=== PATIENT | male | born 1980 | race Caucasian/White ===

== ENCOUNTER 2018-01-30 05:34 | Emergency (ER) | payer SELFPAY ==
[~2018-01-30] VITALS: Ht 182.9 cm; Wt 82.6 kg
--- OUTSIDE RECORDS SUMMARY | 2018-01-30 05:40 | XMS REPORT | Continuity of Care Document ---
Author Author [facility] Address Unknown Phone Unavailable Allergies There is no data. Medications There is no data. Problems Date Dx Coded Attending Type Code Diagnosis Diagnosed By 08/04/2012 ALEX VALDEZ DO 729.5 ARM PAIN 08/04/2012 ALEX VALDEZ DO 813.20 FRACTURE OF SHAFT OF RADIUS OR ULNA UNSPECIFIED CLOSED 08/04/2012 ALEX VALDEZ DO V58.31 WOUND DRESSING Procedures Code Description Performed By Performed On A6449 LT GEORGE BAND >=3" <5"/YD 08/04/2012 S0630 SUTURE REMOVAL 08/04/2012 Results There is no data. Encounters ACCT No. Visit Date/Time Discharge Status Pt. Type Provider Facility Loc./Unit Complaint [id number] 08/04/2012 10:13:00 08/04/2012 23:59:59 CLS Outpatient ALEX VALDEZ DO
--- OUTSIDE RECORDS SUMMARY | 2018-01-30 05:40 | XMS REPORT ---
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 Unknown Non Drug Allergy Sep, Unknown SOCIAL HISTORY No smoking Hx information available PLAN OF CARE Activity Details Follow Up 4 Weeks Reason: VITAL SIGNS Height 72.1 in 2016-10-12 Weight 162.5 lbs 2016-10-12 Heart Rate 118 bpm 2016-10-12 Respiratory Rate 20 2016-10-12 BMI 21.98 kg/m2 2016-10-12 Blood pressure systolic 132 mmHg 2016-10-12 Blood pressure diastolic 76 mmHg 2016-10-12 MEDICATIONS Medication Instructions Dosage Frequency Start Date End Date Duration Status Invega 6 MG Orally Once a day 1 tablet in the morning 24h Sep, 30 day(s) Active RESULTS No Results PROCEDURES Procedure Date Ordered Related Diagnosis Body Site MH Office Visit, Est Pt., Level 5 Oct 12, 2016 IMMUNIZATIONS No Known Immunizations
--- OUTSIDE RECORDS SUMMARY | 2018-01-30 05:40 | XMS REPORT ---
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 Unknown Non Drug Allergy Sep, Unknown SOCIAL HISTORY No smoking Hx information available PLAN OF CARE Activity Details Follow Up 1 Week Reason:te VITAL SIGNS Blood pressure systolic 125 mmHg 2016-10-13 Blood pressure diastolic 90 mmHg 2016-10-13 MEDICATIONS Medication Instructions Dosage Frequency Start Date End Date Duration Status Invega 6 MG Orally Once a day 1 tablet in the morning 24h Sep, 30 day(s) Active Amoxicillin 500 MG Orally every 6 hrs 1 capsule 6h Sep, 7 days Active RESULTS No Results PROCEDURES Procedure Date Ordered Related Diagnosis Body Site LTD ORAL EVALUATION - PROBLEM FOCUS Oct 13, 2016 INTRAORL-PERIAPICAL 1 FILM [id number] Oct 13, 2016 IMMUNIZATIONS No Known Immunizations
--- OUTSIDE RECORDS SUMMARY | 2018-01-30 05:40 | XMS REPORT ---
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
--- OUTSIDE RECORDS SUMMARY | 2018-01-30 05:40 | XMS REPORT ---
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
[2018-01-30 07:25] VITALS: BP 134/80
== END 2018-01-30 07:30 | disposition home or self-care (01) ==
LOC: EDUNIT# 05:34 → ER 05:36
DX: S06.0X0A Concussion without loss of consciousness, initial encounter (principal); F17.210 Nicotine dependence, cigarettes, uncomplicated; Z88.5 Allergy status to narcotic agent; V18.4XXA Pedal cycle driver injured in noncollision transport accident in traffic accident, initial encounter
CPT/HCPCS: 70450; 71045; 72125; 73000

== ENCOUNTER 2022-10-07 21:52 | Emergency (ER) | payer SELFPAY ==
[~2022-10-07] VITALS: Ht 182.9 cm; Wt 63.5 kg
--- NOTE | 2022-10-07 22:26 | ED Abdominal Pain ---
General Stated Complaint: SEVERE ABDOMINAL PAIN Source of Information: Patient (VERY DIFFICULT HISTORIAN) History of Present Illness Date Seen by Provider: Oct 07, 2022 Time Seen by Provider: 22:15 Initial Comments PT ARRIVES VIA POV FROM HOME C/O LLQ PAIN X 2 HOURS NO HISTORY OF SAME AND NO PRIOR ABDOMINAL SURGERIES STATES HE AT 3 HOURS AGO, WILL NOT STATE WHAT HE ATE. UNABLE/UNWILLING TO GIVE ANY MORE INFORMATION THAN THAT ON REVIEWED OF PRIOR RECORDS, PT HAS HISTORY OF KIDNEY STONES. PT DOES NOT GIVE THIS INFORMATION PCP: NONE--JUST GOT OUT OF CORRECTION IN JUNE 2022. PT IS ORIGINALLY FROM [facility]. HE STATES HE IS NOT CURRENTLY HOMELESS Allergies and Home Medications Allergies Coded Allergies: tramadol (Verified Allergy, Unknown, 01/30/18) Patient Home Medication List Home Medication List Reviewed: Yes Ciprofloxacin HCl (Ciprofloxacin HCl) 500 Mg Tablet, 500 MG PO BID Prescribed by: SAMIR XIE on 10/08/2248 Ketorolac Tromethamine (Ketorolac Tromethamine) 10 Mg Tablet, 10 MG PO Q6H Prescribed by: SAMIR XIE on 10/08/2248 Polyethylene Glycol 3350 (Miralax) 17 Gram Powd.pack, 17 GM PO UD Prescribed by: SAMIR XIE on 10/08/2248 Review of Systems Review of Systems Constitutional: no symptoms reported Gastrointestinal: See HPI, Abdominal Pain Past Djrpgdf-Lqagrx-Tcphht Hx Patient Social History Tobacco Use?: Yes Tobacco type used: Cigarettes Smoking Status: Current Everyday Smoker Substance use?: Yes Substance type: Methamphetamine, Marijuana Additional substance use comme: +IV METH USE; THC USE Alcohol Use?: No (DENIES USE) Past Medical History Surgeries: Yes (TESTICLE,SKIN GRAFTS) Respiratory: No Cardiac: No Neurological: No Reproductive Disorders: No Genitourinary: Yes Kidney Stones Gastrointestinal: No Musculoskeletal: No Endocrine: No HEENT: No Cancer: No Psychosocial: Yes (POLYSUBSTANCE USE; INCARCERATED UNTIL 06/2022) Integumentary: No Blood Disorders: No Family Medical History No Pertinent Family Hx Physical Exam Vital Signs Vital Signs - First Documented 10/07/22 22:05 Temp 36.4 Pulse 95 Resp 20 B/P (MAP) 131/79 (96) Pulse Ox 100 O2 Delivery Room Air Capillary Refill : Height/Weight/BMI Height: 6'0" Weight: 182lbs. oz. 82.518140xc; BMI Method:Stated General Appearance: other (FILTHY, VERY UNKEMPT, EXTREMELY DRAMATIC, WAILING WITH IV STICK, DOES NOT WANT TO TALK OR ANSWER QUESTIONS, GIVES VERY MINIMAL ANSWERS) Respiratory: normal breath sounds Cardiovascular: regular rate, rhythm Gastrointestinal: soft, guarding, tenderness (LLQ) Extremities: normal inspection Back: no CVA tenderness Neurologic/Psychiatric: no motor/sensory deficits, alert, oriented x 3 Skin: normal color, warm/dry, tattoos/piercings (EXTENSIVE TATTOOS; NO OBVIOUS RECENT IV TRACK CHAO TO ARMS. ) Progress/Results/Core Measures Results/Orders Lab Results Laboratory Tests Test 10/07/22 22:20 10/08/22 00:10 Range/Units White Blood Count 7.3 4.3-11.0 10^3/uL Red Blood Count 4.48 4.30-5.52 10^6/uL Hemoglobin 14.2 13.3-17.7 g/dL Hematocrit 42 40-54 % Mean Corpuscular Volume 93 80-99 fL Mean Corpuscular Hemoglobin 32 25-34 pg Mean Corpuscular Hemoglobin Concent 34 32-36 g/dL Red Cell Distribution Width 12.3 10.0-14.5 % Platelet Count 296 130-400 10^3/uL Mean Platelet Volume 10.2 9.0-12.2 fL Immature Granulocyte % (Auto) 0 % Neutrophils (%) (Auto) 64 42-75 % Lymphocytes (%) (Auto) 25 12-44 % Monocytes (%) (Auto) 8 0-12 % Eosinophils (%) (Auto) 2 0-10 % Basophils (%) (Auto) 1 0-10 % Neutrophils # (Auto) 4.7 1.8-7.8 10^3/uL Lymphocytes # (Auto) 1.8 1.0-4.0 10^3/uL Monocytes # (Auto) 0.6 0.0-1.0 10^3/uL Eosinophils # (Auto) 0.1 0.0-0.3 10^3/uL Basophils # (Auto) 0.1 0.0-0.1 10^3/uL Immature Granulocyte # (Auto) 0.0 0.0-0.1 10^3/uL Erythrocyte Sedimentation Rate 5 0-15 MM/HR Sodium Level 140 135-145 MMOL/L Potassium Level 4.0 3.6-5.0 MMOL/L Chloride Level 105 98-107 MMOL/L Carbon Dioxide Level 24 21-32 MMOL/L Anion Gap 11 5-14 MMOL/L Blood Urea Nitrogen 23 H 7-18 MG/DL Creatinine 0.98 0.60-1.30 MG/DL Estimat Glomerular Filtration Rate 98 BUN/Creatinine Ratio 23 Glucose Level 100 70-105 MG/DL Calcium Level 9.4 8.5-10.1 MG/DL Corrected Calcium 9.1 8.5-10.1 MG/DL Total Bilirubin 0.5 0.1-1.0 MG/DL Aspartate Amino Transf (AST/SGOT) 17 5-34 U/L Alanine Aminotransferase (ALT/SGPT) 25 0-55 U/L Alkaline Phosphatase 63 40-136 U/L C-Reactive Protein High Sensitivity 0.26 0.00-0.50 MG/DL Total Protein 7.2 6.4-8.2 GM/DL Albumin 4.4 3.2-4.5 GM/DL Amylase Level 31 25-125 U/L Lipase 25 8-78 U/L Serum Alcohol < 10 <10 MG/DL Urine Color DARK YELLOW Urine Clarity CLOUDY Urine pH 6.0 5-9 Urine Specific [place] 1.025 H 1.016-1.022 Urine Protein 1+ H NEGATIVE Urine Glucose (UA) NEGATIVE NEGATIVE Urine Ketones 1+ H NEGATIVE Urine Nitrite NEGATIVE NEGATIVE Urine Bilirubin NEGATIVE NEGATIVE Urine Urobilinogen 1.0 < = 1.0 MG/DL Urine Leukocyte Esterase 1+ H NEGATIVE Urine RBC (Auto) 3+ H NEGATIVE Urine RBC 25-50 H /HPF Urine WBC 5-10 H /HPF Urine Squamous Epithelial Cells 0-2 /HPF Urine Crystals NONE /LPF Urine Bacteria TRACE /HPF Urine Casts NONE /LPF Urine Mucus SMALL H /LPF Urine Culture Indicated YES Urine Opiates Screen NEGATIVE NEGATIVE Urine Oxycodone Screen NEGATIVE NEGATIVE Urine Methadone Screen NEGATIVE NEGATIVE Urine Propoxyphene Screen NEGATIVE NEGATIVE Urine Barbiturates Screen NEGATIVE NEGATIVE Ur Tricyclic Antidepressants Screen NEGATIVE NEGATIVE Urine Phencyclidine Screen NEGATIVE NEGATIVE Urine Amphetamines Screen POSITIVE H NEGATIVE Urine Methamphetamines Screen POSITIVE H NEGATIVE Urine Benzodiazepines Screen NEGATIVE NEGATIVE Urine Cocaine Screen NEGATIVE NEGATIVE Urine Cannabinoids Screen NEGATIVE NEGATIVE My Orders Orders - SAMIR XIE DO Ed Iv/Invasive Line Start (10/07/22 22:14) Amylase (10/07/22 22:14) Cbc With Automated Diff (10/07/22 22:14) Comprehensive Metabolic Panel (10/07/22 22:14) Hs C Reactive Protein (10/07/22 22:14) Lipase (10/07/22 22:14) Ua Culture If Indicated (10/07/22 22:14) Erythrocyte Sedimentation Rate (10/07/22 22:14) Ct Abd/Pelvis Wo(Kidney Stone) (10/07/22 22:19) Alcohol (10/07/22 22:19) Drug Screen Stat (Urine) (10/07/22 22:19) Abdomen/Kub 1view (10/07/22 22:21) Ed Iv/Invasive Line Start (10/07/22 22:30) Lactated Ringers (Lr 1000 Ml Iv Solution (10/07/22 22:30) Ondansetron Injection (Zofran Injectio (10/07/22 22:30) Ketorolac Injection (Toradol Injection) (10/07/22 22:30) Urine Culture (10/08/22 00:10) Ceftriaxone 1 Gm Pre-Mix (Rocephin 1 Gm (10/08/22 00:40) Medications Given in ED Current Medications Medications Dose Ordered Sig/Bharati Route Start Time Stop Time Status Last Admin Dose Admin Lactated Ringer's 1,000 ml @ 0 mls/hr Q0M ONCE IV 10/07/22 22:30 10/07/22 22:31 DC 10/07/22 22:38 0 MLS/HR Ondansetron HCl 4 mg ONCE ONCE IVP 10/07/22 22:30 10/07/22 22:31 DC 10/07/22 22:38 4 MG Vital Signs/I&O 10/07/22 22:05 Temp 36.4 Pulse 95 Resp 20 B/P (MAP) 131/79 (96) Pulse Ox 100 O2 Delivery Room Air Progress Progress Note : Progress Note PT IS VERY BELLIGERENT, CURSING AND VERBALLY ABUSIVE TO STAFF, FROM TIME OF ARRIVAL GIVEN: -IV FLUIDS -ZOFRAN -TORADOL PT SLEPT FOR REMAINDER OF ER STAY REVIEWED OLD RECORDS, INCLUDING ER VISITS, ADMITS, TESTS/PROCEDURES, CONSULTS AND DISCHARGE SUMMARIES REVIEWED TEST RESULTS, ANTICIPATED COURSE, MEDICATIONS, DIET, NEED FOR FOLLOW UP / ESTABLISH WITH LOCAL DR, AND RETURN PRECAUTIONS DISCUSSED WITH PT. Departure Impression Primary Impression: Constipation Additional Impressions: Urinary tract infection Methamphetamine addiction Disposition: 01 HOME, SELF-CARE Condition: Improved Departure-Patient Inst. Decision time for Depature: 00:42 Referrals: NO,LOCAL PHYSICIAN (PCP/Family) Primary Care Physician Patient Instructions: Constipation, Adult (DC), Drug Abuse and Drug Addiction (DC), Urinary Tract Infection, Adult (DC) Add. Discharge Instructions: HOME, REST NO DRUGS! LOTS OF CLEAR LIQUIDS--WATER, BROTH, JELLO, GATORADE NO FOOD UNTIL YOU HAVE HAD A BOWEL MOVEMENT, THEN START A HIGH FIBER DIET TAKE MIRALAX 1 CAP IN 8 OZ OF WATER--EVERY HOUR UNTIL YOU HAVE A BOWEL MOVEMENT, THEN START USING MIRALAX ONCE A DAY FOLLOW UP WITH DR OF CHOICE IN 2-3 DAYS IF NO BETTER, RETURN TO ER IF WORSE Scripts Ketorolac Tromethamine (Ketorolac Tromethamine) 10 Mg Tablet 10 MG PO Q6H for Pain, #15 TAB Prov: SAMIR XIE DO 10/08/22 Polyethylene Glycol 3350 (Miralax) 17 Gram Powd.pack 17 GM PO UD, #1 EACH MIX DIRECTED, THEN TAKE 1 DOSE EVERY 1-2 HOURS UNTIL YOU HAVE A BM, THEN USE ONCE A DAY EVERY DAY Prov: SAMIR XIE DO 10/08/22 Ciprofloxacin HCl (Ciprofloxacin HCl) 500 Mg Tablet 500 MG PO BID, #14 TAB Prov: SAMIR XIE DO 10/08/22 SAMIR XIE DO Oct 07, 2022 22:26
[2022-10-07 22:29] LABS: BASOPHILS # (AUTO) 0.1 10^3/uL (0.0-0.1); BASOPHILS % (AUTO) 1 % (0-10); EOSINOPHILS # (AUTO) 0.1 10^3/uL (0.0-0.3); EOSINOPHILS % (AUTO) 2 % (0-10); HEMATOCRIT 42 % (40-54); HEMOGLOBIN 14.2 g/dL (13.3-17.7); LYMPHOCYTES # (AUTO) 1.8 10^3/uL (1.0-4.0); LYMPHOCYTES % (AUTO) 25 % (12-44); MEAN CORPUSCULAR HEMOGLOBIN 32 pg (25-34); MEAN CORPUSCULAR HGB CONC 34 g/dL (32-36); MEAN CORPUSCULAR VOLUME 93 fL (80-99); MEAN PLATELET VOLUME 10.2 fL (9.0-12.2); MONOCYTES # (AUTO) 0.6 10^3/uL (0.0-1.0); MONOCYTES % (AUTO) 8 % (0-12); NEUTROPHILS # (AUTO) 4.7 10^3/uL (1.8-7.8); NEUTROPHILS % (AUTO) 64 % (42-75); PLATELET COUNT 296 10^3/uL (130-400); WHITE BLOOD COUNT 7.3 10^3/uL (4.3-11.0)
[2022-10-07] MEDS ORDERED: ONDANSETRON 4 MG/2 ML (SDV) Z0FRAN IVP ONE (22:30)
[2022-10-07] MEDS ORDERED: KETOROLAC 30 MG/ML VIAL IVP STA (22:30)
[2022-10-07] MEDS ORDERED: LACTATED RINGERS 1,000 ML IV ONE (22:30)
[2022-10-07 22:43] LABS: ALBUMIN 4.4 GM/DL (3.2-4.5); CHLORIDE 105 MMOL/L (98-107); SODIUM 140 MMOL/L (135-145)
[2022-10-07 22:44] LABS: AMYLASE 31 U/L (25-125); CALCIUM 9.4 MG/DL (8.5-10.1)
[2022-10-07 22:46] LABS: GLUCOSE 100 MG/DL (70-105); TOTAL PROTEIN 7.2 GM/DL (6.4-8.2)
[2022-10-07 22:47] LABS: BILIRUBIN,TOTAL 0.5 MG/DL (0.1-1.0); CARBON DIOXIDE 24 MMOL/L (21-32); ERYTHROCYTE SEDIMENTATION RATE 5 MM/HR (0-15)
[2022-10-07 22:49] LABS: ALKALINE PHOSPHATASE 63 U/L (40-136); CREATININE SERUM 0.98 MG/DL (0.60-1.30); GFR ESTIMATED 98
[2022-10-07 22:50] LABS: BUN/CREATININE RATIO 23
[2022-10-07 22:52] LABS: ALANINE AMINOTRANSFERASE 25 U/L (0-55)
[2022-10-07 22:53] LABS: LIPASE 25 U/L (8-78)
[2022-10-08 00:17] LABS: BILIRUBIN,URINE NEGATIVE (NEGATIVE); CLARITY,URINE CLOUDY; GLUCOSE, URINE (UA) NEGATIVE (NEGATIVE); KETONES,URINE 1+ (NEGATIVE); LEUKOCYTE ESTERASE ,URINE 1+ (NEGATIVE); NITRITE,URINE NEGATIVE (NEGATIVE); PROTEIN,URINE 1+ (NEGATIVE)
[2022-10-08 00:20] LABS: COLOR,URINE DARK YELLOW
[2022-10-08 00:33] LABS: BACTERIA,URINE TRACE /HPF; RBC,URINE 25-50 /HPF; SQUAMOUS EPITHELIAL CELL,UR 0-2 /HPF
[2022-10-08 00:34] LABS: AMPHETAMINE SCREEN, URINE POSITIVE (NEGATIVE); BARBITURATE SCREEN URINE NEGATIVE (NEGATIVE); BENZODIAZEPINES SCREEN URINE NEGATIVE (NEGATIVE); CANNABINOID SCREEN, URINE NEGATIVE (NEGATIVE); COCAINE SCREEN URINE NEGATIVE (NEGATIVE); METHADONE STAT NEGATIVE (NEGATIVE); OPIATE SCREEN URINE NEGATIVE (NEGATIVE); OXYCODONE STAT NEGATIVE (NEGATIVE); PROPOXYPHENE STAT NEGATIVE (NEGATIVE); TRICYCLIC ANTIDEPRESSANTS SCRE NEGATIVE (NEGATIVE)
[2022-10-08] MEDS ORDERED: cefTRIAXone 1 GM PRE-MIX 50 ML IV STA (00:40)
[2022-10-08] MEDS ORDERED: POLY17PO6 PO (00:49)
[2022-10-08] MEDS ORDERED: CIPR500T5 PO (00:49)
[2022-10-08] MEDS ORDERED: KETO10TA PO (00:49)
[2022-10-08 01:30] VITALS: BP 113/79
--- NOTE | 2022-10-08 05:32 | Diagnostic Imaging Report ---
INDICATION: Abdominal pain. FINDINGS: The bowel gas pattern is nonspecific. Lung bases are clear. There is no free air. There are no abnormal abdominal calcifications. IMPRESSION: Nonspecific bowel gas pattern. Dictated by: Dictated on workstation # [id number]
--- NOTE | 2022-10-08 05:37 | Diagnostic Imaging Report ---
PROCEDURE: CT urinary tract, rule out kidney stone. TECHNIQUE: Multiple contiguous axial images were obtained through the abdomen and pelvis without the use of intravenous contrast. Auto Exposure Controls were utilized during the CT exam to meet ALARA standards for radiation dose reduction. INDICATION: Flank pain. FINDINGS: The heart size is normal. The lung bases are clear. The liver is normal in size without focal lesions. Gallbladder is unremarkable. There is no biliary ductal dilatation. Spleen is normal. Pancreas and adrenal glands are unremarkable. There are nonobstructing stones in the right kidney. There is no evidence of obstructive uropathy. There is some atherosclerotic calcification of the aorta. There is a moderate amount of retained fecal material likely reflecting some degree of constipation. Bowel gas pattern is otherwise nonspecific. There is no free air. There is no ascites. There is no pelvic mass or adenopathy. There are degenerative changes in spine. IMPRESSION: Nonobstructing right renal calculi without evidence of obstructive uropathy. Moderate amount of retained fecal material likely reflecting some degree of constipation, otherwise nonspecific bowel gas pattern. Otherwise unremarkable noncontrast CT abdomen and pelvis. Dictated by: Dictated on workstation # [id number]
== END 2022-10-08 01:30 | disposition home or self-care (01) ==
LOC: EDUNIT# 21:52 → ER 21:54
DX: K59.00 Constipation, unspecified (principal); N39.0 Urinary tract infection, site not specified; F15.20 Other stimulant dependence, uncomplicated; F17.210 Nicotine dependence, cigarettes, uncomplicated; Z87.442 Personal history of urinary calculi; Z88.5 Allergy status to narcotic agent
CPT/HCPCS: 74018; 74176; 80053; 82150; 83690; 85025; 85652; 86141; G0480; 36415; 80306; 80320; 81000; 87088

== ENCOUNTER 2022-10-10 00:56 | Emergency (ER) | payer SELFPAY ==
[~2022-10-10] VITALS: Ht 182 cm; Wt 63.5 kg
[~2022-10-10 00:56] MED LIST: CIPR500T5 PO; KETO10TA PO; POLY17PO6 PO
[2022-10-10] MEDS ORDERED: diphenhydrAMINE 50 MG/ML INJ (BENADRYL) IV STA (01:49)
[2022-10-10] MEDS ORDERED: KETOROLAC 30 MG/ML VIAL IVP STA (01:49)
[2022-10-10] MEDS ORDERED: LACTATED RINGERS 1,000 ML IV ONE (02:00)
[2022-10-10 02:08] LABS: BASOPHILS % (AUTO) 1 % (0-10); EOSINOPHILS # (AUTO) 0.1 10^3/uL (0.0-0.3); EOSINOPHILS % (AUTO) 2 % (0-10); HEMATOCRIT 40 % (40-54); HEMOGLOBIN 13.6 g/dL (13.3-17.7); LYMPHOCYTES # (AUTO) 1.9 10^3/uL (1.0-4.0); LYMPHOCYTES % (AUTO) 25 % (12-44); MEAN CORPUSCULAR HEMOGLOBIN 32 pg (25-34); MEAN CORPUSCULAR HGB CONC 34 g/dL (32-36); MEAN CORPUSCULAR VOLUME 94 fL (80-99); MEAN PLATELET VOLUME 10.2 fL (9.0-12.2); MONOCYTES # (AUTO) 0.6 10^3/uL (0.0-1.0); MONOCYTES % (AUTO) 8 % (0-12); NEUTROPHILS # (AUTO) 4.8 10^3/uL (1.8-7.8); NEUTROPHILS % (AUTO) 65 % (42-75); PLATELET COUNT 292 10^3/uL (130-400); WHITE BLOOD COUNT 7.5 10^3/uL (4.3-11.0)
[2022-10-10 02:10] LABS: ALBUMIN 4.2 GM/DL (3.2-4.5); CHLORIDE 106 MMOL/L (98-107); SODIUM 139 MMOL/L (135-145)
[2022-10-10 02:11] LABS: AMYLASE 40 U/L (25-125); CALCIUM 9.2 MG/DL (8.5-10.1)
[2022-10-10 02:13] LABS: GLUCOSE 103 MG/DL (70-105)
[2022-10-10 02:14] LABS: CARBON DIOXIDE 22 MMOL/L (21-32)
[2022-10-10 02:15] LABS: BILIRUBIN,TOTAL 0.3 MG/DL (0.1-1.0)
[2022-10-10 02:16] LABS: ALKALINE PHOSPHATASE 56 U/L (40-136); CREATININE SERUM 1.14 MG/DL (0.60-1.30); GFR ESTIMATED 81
[2022-10-10 02:17] LABS: BUN/CREATININE RATIO 14
[2022-10-10 02:19] LABS: ALANINE AMINOTRANSFERASE 25 U/L (0-55)
[2022-10-10 02:20] LABS: LIPASE 35 U/L (8-78)
--- NOTE | 2022-10-10 02:57 | ED Abdominal Pain ---
General Chief Complaint: Back Problems Stated Complaint: SIDE PAIN Nursing Triage Note: c/o left flank pain radiating to testicles x2 hrs. Source of Information: Patient (DIFFICULT HISTORIAN), Old Records History of Present Illness Date Seen by Provider: Oct 10, 2022 Time Seen by Provider: 01:47 Initial Comments PT ARRIVES VIA POV--STATES "A PAULINA DROPPED ME OFF" C/O LLQ AND LEFT FLANK PAIN RADIATING TO TESTICLES --TELLS ME IT STARTED 30 MINUTES AGO, TOLD RN IT STARTED 2 HOURS AGO. NO NAUSEA/VOMITING NO URINARY SYMPTOMS HAS NOT TAKEN ANYTHING FOR PAIN UNABLE TO OBTAIN ANY OTHER INFORMATION FROM PT ABOUT CURRENT ISSUE WHEN PT ARRIVED IN WAITING ROOM HE WAS EXTREMELY BELLIGERENT, YELLING, HITTING THE ARCINIEGA AND THE WINDOWS, THEN LAID ON THE FLOOR AND REFUSED TO MOVE. [employer] ADMINISTRATOR AND [employer]ICE WERE CONTACTED AND PT EVENTUALLY CALMED, AND AGREED TO BE RESPECTFUL, PRIOR TO BEING BROUGHT BACK TO A ROOM. PT WAS HERE ON 10/07/22 FOR SAME COMPLAINT. FULL WORK UP, INCLUDING LAB, AND CT SCAN WERE DONE, AND ONLY SHOWED EVIDENCE OF CONSTIPATION AT THAT TIME. HE WAS PRESCRIBED ZOFRAN, TORADOL AND MIRALAX. HE STATES DID NOT SERVICE SUPPORT REPRESENTATIVE ANY OF THESE PRESCRIPTIONS. Allergies and Home Medications Allergies Coded Allergies: tramadol (Verified Allergy, Unknown, 01/30/18) Patient Home Medication List Home Medication List Reviewed: Yes Ciprofloxacin HCl (Ciprofloxacin HCl) 500 Mg Tablet, 500 MG PO BID Prescribed by: SAMIR XIE on 10/08/2248 Ciprofloxacin HCl (Ciprofloxacin HCl) 500 Mg Tablet, 500 MG PO BID Prescribed by: SAMIR XIE on 10/10/22342 Hydrocodone/Acetaminophen (Hydrocodone-Acetamin 5-325 mg) 5 Mg-325 Mg Tablet, 1 EACH PO Q4-6 HOURS PRN for PAIN Prescribed by: SAMIR XIE on 10/10/22342 Ketorolac Tromethamine (Ketorolac Tromethamine) 10 Mg Tablet, 10 MG PO Q6H Prescribed by: SAMIR XIE on 10/08/2248 Ketorolac Tromethamine (Ketorolac Tromethamine) 10 Mg Tablet, 10 MG PO Q6H Prescribed by: SAMIR XIE on 10/10/22342 Ondansetron (Ondansetron Odt) 8 Mg Tab.rapdis, 8 MG PO Q6H Prescribed by: SAMIR XIE on 10/10/22 0343 Polyethylene Glycol 3350 (Miralax) 17 Gram Powd.pack, 17 GM PO UD Prescribed by: SAMIR XIE on 10/08/22 0049 Tamsulosin HCl (Flomax) 0.4 Mg Cap, 0.4 MG PO DAILY Prescribed by: SAMIR XIE on 10/10/22 0343 Review of Systems Review of Systems Constitutional: see HPI Gastrointestinal: See HPI Genitourinary: See HPI Psychiatric/Neurological: See HPI Past Suiflhx-Umqkni-Ntfuqr Hx Patient Social History Tobacco Use?: Yes Tobacco type used: Cigarettes Smoking Status: Current Everyday Smoker Substance use?: Yes Substance type: Methamphetamine, Marijuana Substance frequency: Daily Alcohol Use?: No Pt feels they are or have been: No Immunizations Up To Date First/Initial COVID19 Vaccinat: na Past Medical History Surgery/Hospitalization HX: skin graft, testicular sx, renal stones, constipation. polysubstance abuse Surgeries: Yes (TESTICLE,SKIN GRAFTS) Testicular Respiratory: No Cardiac: No Neurological: No Reproductive Disorders: No Genitourinary: Yes Kidney Stones Gastrointestinal: No Musculoskeletal: No Endocrine: No HEENT: No Cancer: No Psychosocial: Yes (POLYSUBSTANCE USE; INCARCERATED UNTIL 06/2022) Integumentary: Yes (SKIN GRAFTS) Blood Disorders: No Family Medical History No Pertinent Family Hx Physical Exam Vital Signs Vital Signs - First Documented 10/10/22 01:33 Temp 36.6 Pulse 80 Resp 26 B/P (MAP) 122/78 (93) Pulse Ox 99 O2 Delivery Room Air Capillary Refill : Height/Weight/BMI Height: 6'0" Weight: 182lbs. oz. 82.404336kj; 19.00 BMI Method:Stated General Appearance: thin, other (VERY MALODOROUS, UNKEMPT, DIRTY, EXTREMELY DRAMATIC AND WAILING, AND THRASHING. ) HEENT: other (POOR DENTITION) Respiratory: normal breath sounds Cardiovascular: regular rate, rhythm Gastrointestinal: tenderness (LLQ TENDERNESS AND SUPRAPUBIC TENDERNESS) Extremities: normal capillary refill Neurologic/Psychiatric: no motor/sensory deficits, alert Skin: normal color, warm/dry, tattoos/piercings (EXTENSIVE TATTOOS) Progress/Results/Core Measures Results/Orders Lab Results Laboratory Tests Test 10/10/22 01:50 10/10/22 03:52 Range/Units White Blood Count 7.5 4.3-11.0 10^3/uL Red Blood Count 4.31 4.30-5.52 10^6/uL Hemoglobin 13.6 13.3-17.7 g/dL Hematocrit 40 40-54 % Mean Corpuscular Volume 94 80-99 fL Mean Corpuscular Hemoglobin 32 25-34 pg Mean Corpuscular Hemoglobin Concent 34 32-36 g/dL Red Cell Distribution Width 12.3 10.0-14.5 % Platelet Count 292 130-400 10^3/uL Mean Platelet Volume 10.2 9.0-12.2 fL Immature Granulocyte % (Auto) 0 % Neutrophils (%) (Auto) 65 42-75 % Lymphocytes (%) (Auto) 25 12-44 % Monocytes (%) (Auto) 8 0-12 % Eosinophils (%) (Auto) 2 0-10 % Basophils (%) (Auto) 1 0-10 % Neutrophils # (Auto) 4.8 1.8-7.8 10^3/uL Lymphocytes # (Auto) 1.9 1.0-4.0 10^3/uL Monocytes # (Auto) 0.6 0.0-1.0 10^3/uL Eosinophils # (Auto) 0.1 0.0-0.3 10^3/uL Basophils # (Auto) 0.0 0.0-0.1 10^3/uL Immature Granulocyte # (Auto) 0.0 0.0-0.1 10^3/uL Sodium Level 139 135-145 MMOL/L Potassium Level 4.0 3.6-5.0 MMOL/L Chloride Level 106 98-107 MMOL/L Carbon Dioxide Level 22 21-32 MMOL/L Anion Gap 11 5-14 MMOL/L Blood Urea Nitrogen 16 7-18 MG/DL Creatinine 1.14 0.60-1.30 MG/DL Estimat Glomerular Filtration Rate 81 BUN/Creatinine Ratio 14 Glucose Level 103 70-105 MG/DL Calcium Level 9.2 8.5-10.1 MG/DL Corrected Calcium 9.0 8.5-10.1 MG/DL Total Bilirubin 0.3 0.1-1.0 MG/DL Aspartate Amino Transf (AST/SGOT) 20 5-34 U/L Alanine Aminotransferase (ALT/SGPT) 25 0-55 U/L Alkaline Phosphatase 56 40-136 U/L Total Protein 7.0 6.4-8.2 GM/DL Albumin 4.2 3.2-4.5 GM/DL Amylase Level 40 25-125 U/L Lipase 35 8-78 U/L Serum Alcohol < 10 <10 MG/DL Urine Color YELLOW Urine Clarity CLEAR Urine pH 6.5 5-9 Urine Specific [place] 1.015 L 1.016-1.022 Urine Protein NEGATIVE NEGATIVE Urine Glucose (UA) NEGATIVE NEGATIVE Urine Ketones NEGATIVE NEGATIVE Urine Nitrite NEGATIVE NEGATIVE Urine Bilirubin NEGATIVE NEGATIVE Urine Urobilinogen 0.2 < = 1.0 MG/DL Urine Leukocyte Esterase TRACE H NEGATIVE Urine RBC (Auto) 3+ H NEGATIVE Urine RBC 2-5 H /HPF Urine WBC 0-2 /HPF Urine Crystals NONE /LPF Urine Bacteria NEGATIVE /HPF Urine Casts NONE /LPF Urine Mucus NEGATIVE /LPF Urine Culture Indicated YES Urine Opiates Screen NEGATIVE NEGATIVE Urine Oxycodone Screen NEGATIVE NEGATIVE Urine Methadone Screen NEGATIVE NEGATIVE Urine Propoxyphene Screen NEGATIVE NEGATIVE Urine Barbiturates Screen NEGATIVE NEGATIVE Ur Tricyclic Antidepressants Screen NEGATIVE NEGATIVE Urine Phencyclidine Screen NEGATIVE NEGATIVE Urine Amphetamines Screen POSITIVE H NEGATIVE Urine Methamphetamines Screen POSITIVE H NEGATIVE Urine Benzodiazepines Screen NEGATIVE NEGATIVE Urine Cocaine Screen NEGATIVE NEGATIVE Urine Cannabinoids Screen NEGATIVE NEGATIVE My Orders Orders - SAMIR XIE DO Ed Iv/Invasive Line Start (10/10/22 01:48) Monitor-Rhythm Ecg Trace Only (10/10/22 01:48) Ct Abd/Pelvis Wo(Kidney Stone) (10/10/22 01:48) Alcohol (10/10/22 01:48) Amylase (10/10/22 01:48) Cbc With Automated Diff (10/10/22 01:48) Comprehensive Metabolic Panel (10/10/22 01:48) Drug Screen Stat (Urine) (10/10/22 01:48) Lipase (10/10/22 01:48) Ua Culture If Indicated (10/10/22 01:48) Abdomen/Kub 1view (10/10/22 01:48) Ed Iv/Invasive Line Start (10/10/22 01:49) Lactated Ringers (Lr 1000 Ml Iv Solution (10/10/22 02:00) Ketorolac Injection (Toradol Injection) (10/10/22 01:49) Diphenhydramine Injection (Benadryl Inje (10/10/22 01:49) Tamsulosin Capsule (Flomax Capsule) (10/10/22 03:45) Rx-Hydrocodone/Apap 5-325 Mg (Rx-Vicodin (10/10/22 03:45) Rx-Ondansetron Po (Rx-Zofran Po) (10/10/22 03:45) Ciprofloxacin Tablet (Cipro Tablet) (10/10/22 03:45) Urine Culture (10/10/22 03:52) Medications Given in ED Current Medications Medications Dose Ordered Sig/Bharati Route Start Time Stop Time Status Last Admin Dose Admin Acetaminophen/ Hydrocodone Bitart 1 ea Q4H PRN PO 10/10/22 03:45 10/10/22 04:30 DC 10/10/22 03:53 1 EA Lactated Ringer's 1,000 ml @ 0 mls/hr Q0M ONCE IV 10/10/22 02:00 10/10/22 02:01 DC 10/10/22 01:53 0 MLS/HR Vital Signs/I&O 10/10/22 10/10/22 01:33 03:54 Temp 36.6 36.2 Pulse 80 88 Resp 26 16 B/P (MAP) 122/78 (93) 92/53 Pulse Ox 99 97 O2 Delivery Room Air Room Air Blood Pressure Mean: 93 Progress Progress Note : Progress Note GIVEN: -IV FLUIDS -BENADRYL -TORADOL -FLOMAX -CIPRO -TAKE HOME PACKS OF ZOFRAN AND HYDROCODONE PT SLEPT SOUNDLY FOR REMAINDER OF ER STAY NO FURTHER COMPLAINTS OF PAIN FOR REMAINDER OF ER STAY REVIEWED OLD RECORDS, INCLUDING RECENT ER VISIT, TEST RESULTS, DISCUSSED TEST RESULTS, ANTICIPATED COURSE, MEDICATIONS, NEED FOR FOLLOW UP, AND RETURN PRECAUTIONS Diagnostic Imaging Comments KUB--LARGE AMOUNT OF GAS AND STOOL. NO ACUTE PROCESS, PENDING RADIOLOGIST REVIEW CT ABDOMEN/PELVIS--PER [facility] VIA FAX AT 0340 -LEFT PERINEPHRIC STRANDING AND RENAL COLLECTING SYSTEM FULLNESS, WHEN COMPARED TO PRIOR STUDY DONE ON 10/07/22 -2 MM MID LEFT URETERAL STONE. Reviewed: Reviewed by Me Departure Impression Primary Impression: Left ureteral calculus Additional Impression: Methamphetamine addiction Disposition: HOME, SELF-CARE Condition: Improved Departure-Patient Inst. Decision time for Depature: 03:40 Referrals: NO,LOCAL PHYSICIAN (PCP/Family) Primary Care Physician Patient Instructions: Kidney Stone, Adult ED, How to Strain Your Urine Add. Discharge Instructions: STRAIN ALL URINE--RETURN ANY STONE TO UROLOGIST OFFICE LOTS OF FLUIDS--NO ALCOHOL NO DRUGS FOLLOW UP WITH UROLOGIST OF CHOICE FOR FURTHER CARE--YOU MAY CALL [facility] OR [facility] IN [place] FOR A LIST OF UROLOGISTS. CALL ON WEDNESDAY TO SCHEDULE AN APPOINTMENT RETURN TO ER IF SYMPTOMS WORSEN All discharge instructions reviewed with patient and/or family. Voiced understanding. Scripts Hydrocodone/Acetaminophen (Hydrocodone-Acetamin 5-325 mg) 5 Mg-325 Mg Tablet 1 EACH PO Q4-6 HOURS PRN for PAIN, #20 TAB Prov: SAMIR XIE DO 10/10/22 Ketorolac Tromethamine (Ketorolac Tromethamine) 10 Mg Tablet 10 MG PO Q6H for Pain, #15 TAB Prov: SAMIR XIE DO 10/10/22 Ciprofloxacin HCl (Ciprofloxacin HCl) 500 Mg Tablet 500 MG PO BID, #14 TAB Prov: SAIMR XIE DO 10/10/22 Ondansetron (Ondansetron Odt) 8 Mg Tab.rapdis 8 MG PO Q6H, #10 TAB Prov: SAMIR XIE DO 10/10/22 Tamsulosin HCl (Flomax) 0.4 Mg Cap 0.4 MG PO DAILY, #10 CAP Prov: SAMIR XIE DO 10/10/22 SAMIR XIE DO Oct 10, 2022 02:57
[2022-10-10] MEDS ORDERED: ACHD5005 PO ×2 (03:43→09:26)
[2022-10-10] MEDS ORDERED: CIPR500T5 PO (03:43)
[2022-10-10] MEDS ORDERED: TMSL.4C PO (03:43)
[2022-10-10] MEDS ORDERED: KETO10TA PO (03:43)
[2022-10-10] MEDS ORDERED: ONDA8TAB13 PO (03:43)
[2022-10-10] MEDS ORDERED: RX-ONDANSETRON 4 MG ODT (ZOFRAN) PPK #4 PO STA (03:45)
[2022-10-10] MEDS ORDERED: CIPROFLOXACIN 500 MG (CIPRO) TABLET PO SCH (03:45)
[2022-10-10] MEDS ORDERED: TAMSULOSIN 0.4 MG (FLOMAX) CAP PO SCH (03:45)
[2022-10-10 03:54] VITALS: BP 92/53
[2022-10-10 04:05] LABS: BILIRUBIN,URINE NEGATIVE (NEGATIVE); CLARITY,URINE CLEAR; COLOR,URINE YELLOW; GLUCOSE, URINE (UA) NEGATIVE (NEGATIVE); KETONES,URINE NEGATIVE (NEGATIVE); LEUKOCYTE ESTERASE ,URINE TRACE (NEGATIVE); NITRITE,URINE NEGATIVE (NEGATIVE); PH,URINE 6.5 (5-9); PROTEIN,URINE NEGATIVE (NEGATIVE)
[2022-10-10 04:13] LABS: BACTERIA,URINE NEGATIVE /HPF; WBC,URINE 0-2 /HPF
[2022-10-10 04:39] LABS: AMPHETAMINE SCREEN, URINE POSITIVE (NEGATIVE); BARBITURATE SCREEN URINE NEGATIVE (NEGATIVE); BENZODIAZEPINES SCREEN URINE NEGATIVE (NEGATIVE); CANNABINOID SCREEN, URINE NEGATIVE (NEGATIVE); COCAINE SCREEN URINE NEGATIVE (NEGATIVE); METHADONE STAT NEGATIVE (NEGATIVE); OPIATE SCREEN URINE NEGATIVE (NEGATIVE); OXYCODONE STAT NEGATIVE (NEGATIVE); PROPOXYPHENE STAT NEGATIVE (NEGATIVE); TRICYCLIC ANTIDEPRESSANTS SCRE NEGATIVE (NEGATIVE)
--- NOTE | 2022-10-10 06:19 | Diagnostic Imaging Report ---
PROCEDURE: CT urinary tract, rule out kidney stone. TECHNIQUE: Multiple contiguous axial images were obtained through the abdomen and pelvis without the use of intravenous contrast. Auto Exposure Controls were utilized during the CT exam to meet ALARA standards for radiation dose reduction. INDICATION: Flank pain, renal stones COMPARISON: 10/07/2022 FINDINGS: Visualized lung bases are clear. The unenhanced liver and spleen are unremarkable. The adrenal glands are unremarkable. The unenhanced pancreas is grossly unremarkable. The unenhanced gallbladder is grossly unremarkable. 6 mm calculus is identified within the inferior pole of the right kidney, appearing stable from the prior examination. No right-sided hydronephrosis. No definite right-sided hydroureter. Mild left hydronephrosis is present. This is likely secondary to a 2 mm calculus within the mid left ureter, series 2, image 86. The left kidney is otherwise unremarkable. Mild vascular calcifications within the abdominal aorta and its branch vessels without aneurysmal dilatation of the abdominal aorta. The urinary bladder is unremarkable. Moderate amount of stool throughout the colon. No bowel obstruction or pneumatosis. The appendix is not definitely visualized. No significant adenopathy, free air, or free fluid. Transitional lumbosacral vertebral body. No acute osseous abnormality. IMPRESSION: Interval development of mild left-sided hydronephrosis. This is likely secondary to a 2 mm calculus within the mid left ureter. Moderate amount of stool throughout the colon. Nonobstructing right renal calculus. Agree with preliminary interpretation. Dictated by: Dictated on workstation # [id number]
--- NOTE | 2022-10-10 07:28 | Diagnostic Imaging Report ---
Indication: Generalized abdominal pain. Comparison: 10/07/2022. Discussion: Single frontal view of the abdomen was obtained. Constipation is again noted, stable. No dilated small bowel loops. No pneumatosis or pneumoperitoneum. No osseous abnormality. Impression: 1. Constipation. Dictated by: Dictated on workstation # [id number]
== END 2022-10-10 04:30 | disposition home or self-care (01) ==
LOC: EDUNIT# 00:56 → ER 00:58
DX: N20.1 Calculus of ureter (principal); F15.20 Other stimulant dependence, uncomplicated; F17.210 Nicotine dependence, cigarettes, uncomplicated; Z88.5 Allergy status to narcotic agent; Z87.442 Personal history of urinary calculi; Z28.310 Unvaccinated for COVID-19
CPT/HCPCS: 74018; 74176; 80053; 80306; 81000; 82150; 83690; 85025; 87088; 99283; G0480; 36415; 80320